=== PATIENT | female | born 1950 | race Caucasian/White ===

== ENCOUNTER 2018-07-08 07:41 | Emergency (ER) | payer OTHER, BC ==
[~2018-07-08] VITALS: Ht 157.5 cm; Wt 104.3 kg
[2018-07-08 07:46] VITALS: BP_SYST 166
[2018-07-08 08:43] LABS: BLOOD, URINE 3+ (NEGATIVE); CLARITY/URINE CLOUDY (CLEAR); COLOR,URINE YELLOW (YELLOW); GLUCOSE,URINE NEGATIVE (NEGATIVE); KETONES,URINE 3+ (NEGATIVE); LEUKOCYTE ESTERASE ,URINE NEGATIVE (NEGATIVE); NITRITE, URINE NEGATIVE (NEGATIVE); PH,URINE 5.5 (5.0-8.0); PROTEIN URINE 2+ (NEGATIVE); UROBILINOGEN,URINE 0.2 (0.2-1.0)
[2018-07-08 09:09] LABS: HEMATOCRIT 35.9 % (36-48); HEMOGLOBIN 12.3 g/dL (12.0-16.0); MEAN CORPUSCULAR HEMOGLOBIN 32 pg (27-31); MEAN CORPUSCULAR HGB CONC 34 % (32-36); MEAN CORPUSCULAR VOLUME 93 fL (79.0-98.0); PLATELET COUNT (AUTO) 87 K/uL (130-430); RED BLOOD CELL COUNT(AUTO) 3.87 MIL/uL (4.2-6.2); RED CELL DISTRIBUTION WIDTH 13.5 % (9.0-15.0); WHITE BLOOD COUNT (AUTO) 4.8 K/uL (4.8-10.8)
[2018-07-08 09:12] LABS: CALCIUM 9.7 mg/dL (8.4-11.0); CREATININE 0.97 mg/dL (0.55-1.30); POTASSIUM 4.5 mmol/L (3.5-5.1)
[2018-07-08 09:17] LABS: ALBUMIN 3.6 g/dL (3.4-4.8); TOTAL BILIRUBIN 0.9 mg/dL (0.0-1.0)
[2018-07-08] MEDS ORDERED: NACL 0.9% 1,000 ML IV ONE (09:30)
[2018-07-08 09:40] LABS: BASOPHILS % (MANUAL) 0 % (0-2); EOSINOPHILS % (MANUAL) 0 % (0-7); LYMPHOCYTES % (MANUAL) 7 % (20-46); MONOCYTES % (MANUAL) 3 % (0-11)
[2018-07-08 09:49] LABS: BACTERIA,URINE MODERATE /HPF (None Seen); MUCUS,URINE None Seen /LPF (None Seen); RBC,URINE >100 /HPF (0-3); WBC,URINE 0-3 /HPF (0-3)
[2018-07-08 09:50] LABS: BILIRUBIN,URINE 1+ (NEGATIVE)
[2018-07-08] MEDS ORDERED: cefTRIAXone 1 GM IVPB PREMIX 50 ML IV ONE (10:45)
[2018-07-08] MEDS ORDERED: DIPHENHYDRAMINE INJ 50 MG/ML VIAL IVP ONE (11:00)
[2018-07-08] MEDS ORDERED: DIPHENHYDRAMINE INJ 50 MG/ML VIAL ONE (11:05)
[2018-07-08 11:25] VITALS: BP_SYST 143
== END 2018-07-08 11:25 | disposition home or self-care (01) ==
LOC: SED 07:41
DX: N12 Tubulo-interstitial nephritis, not specified as acute or chronic (principal); Z90.89 Acquired absence of other organs; Z90.710 Acquired absence of both cervix and uterus
CPT/HCPCS: 36415; 80053; 81000; 83690; 85007; 85027; 87086; 96361; 96365; 96375; 99284; J0696; J1200; J7030

== ENCOUNTER 2020-08-10 18:38 | Emergency (ER) | payer OTHER, BC ==
[~2020-08-10] VITALS: Ht 152.4 cm; Wt 102.1 kg
[2020-08-10 18:45] VITALS: BP_SYST 165
[2020-08-10] MEDS ORDERED: LIDOCAINE 1%, 20 ML MDV 20 ML ONE (20:52)
[2020-08-10 21:57] VITALS: BP_SYST 165
== END 2020-08-10 21:57 | disposition home or self-care (01) ==
LOC: SED 18:38
DX: S81.811A Laceration without foreign body, right lower leg, initial encounter (principal); E11.9 Type 2 diabetes mellitus without complications; Z88.0 Allergy status to penicillin; Z88.6 Allergy status to analgesic agent; W22.8XXA Striking against or struck by other objects, initial encounter; Y93.89 Activity, other specified; Y92.89 Other specified places as the place of occurrence of the external cause; Y99.8 Other external cause status
CPT/HCPCS: 12002; 73590; 99283; J2001

== ENCOUNTER 2023-08-01 08:05 | Emergency (ER) | payer OTHER, BC ==
[~2023-08-01] VITALS: Ht 152.4 cm; Wt 86.2 kg
[2023-08-01 08:17] VITALS: BP_SYST 133; PULSE 105; RESP 22; TEMP 98.3; O2SAT 98
[2023-08-01 08:45] LABS: BASOPHILS % (AUTO) 0.2 % (0.0-2.0); EOSINOPHILS % (AUTO) 0.2 % (0.0-4.0); HEMATOCRIT 31.3 % (36-48); HEMOGLOBIN 9.8 g/dL (12.0-16.0); LYMPHOCYTES # (AUTO) 0.3 K/uL (1.0-5.5); LYMPHOCYTES % (AUTO) 6.1 % (20.5-51.5); MEAN CORPUSCULAR HEMOGLOBIN 29 pg (27-31); MEAN CORPUSCULAR HGB CONC 31 % (32-36); MEAN CORPUSCULAR VOLUME 93 fL (79.0-98.0); MONOCYTES # (AUTO) 0.6 K/uL (0.0-1.0); MONOCYTES % (AUTO) 11.6 % (1.7-9.3); NEUTROPHILS # (AUTO) 4.2 K/uL (1.8-7.7); NEUTROPHILS % (AUTO) 81.9 % (40.0-70.0); PLATELET COUNT (AUTO) 140 K/uL (130-430); RED BLOOD CELL COUNT(AUTO) 3.38 MIL/uL (4.2-6.2); RED CELL DISTRIBUTION WIDTH 16.5 % (9.0-15.0); WHITE BLOOD COUNT (AUTO) 5.1 K/uL (4.8-10.8)
[2023-08-01 08:52] LABS: ALANINE AMINOTRANSFERASE 18 U/L (12-78); ALBUMIN 3.3 g/dL (3.4-4.8); ANION GAP 8 (5-15); ASPARTATE AMINOTRANSFERASE 29 U/L (10-37); CALCIUM 9.3 mg/dL (8.4-11.0); CARBON DIOXIDE 26 mmol/L (23-29); CHLORIDE 100 mmol/L (98-107); CREATININE 0.68 mg/dL (0.55-1.30); GLUCOSE 163 mg/dL (74-106); POTASSIUM 4.4 mmol/L (3.5-5.1); SODIUM SERUM 134 mmol/L (136-145); TOTAL BILIRUBIN 1.1 mg/dL (0.0-1.0); TOTAL PROTEIN, SERUM 7.6 g/dL (6.4-8.3); UREA NITROGEN, BLOOD 13 mg/dL (8-21)
[2023-08-01 08:57] LABS: ACETONE, SERUM NEGATIVE (NEGATIVE)
[2023-08-01] MEDS ORDERED: CORTEARS EACH EAR (09:10)
[2023-08-01] MEDS ORDERED: CEPH250C PO (09:10)
[2023-08-01] MEDS ORDERED: IBUP-1969 PO (09:10)
[2023-08-01 09:24] VITALS: BP_SYST 133; PULSE 105; RESP 22; TEMP 98.3; O2SAT 98
[2023-08-02] MEDS ORDERED: MAGN400T7 PO (21:21)
[2023-08-02] MEDS ORDERED: MULT-1357 PO (21:21)
[2023-08-02] MEDS ORDERED: CAR30 PO (21:21)
[2023-08-02] MEDS ORDERED: CHOL200019 PO (21:21)
[2023-08-02] MEDS ORDERED: CELE200C PO (21:21)
[2023-08-02] MEDS ORDERED: OXYIR5 PO (21:21)
[2023-08-02] MEDS ORDERED: PRO40 PO (21:21)
[2023-08-02] MEDS ORDERED: ACET325T53 PO (21:21)
[2023-08-02] MEDS ORDERED: OMEP20CA15 PO (21:21)
[2023-08-02] MEDS ORDERED: ASA81 PO (21:21)
[2023-08-02] MEDS ORDERED: POTA-197 PO (21:21)
[2023-08-02] MEDS ORDERED: BUME1TAB9 PO (21:21)
[2023-08-02] MEDS ORDERED: METF-380 PO (21:21)
[2023-08-02] MEDS ORDERED: SITA100T11 PO (21:21)
== END 2023-08-01 09:24 | disposition home or self-care (01) ==
LOC: SED 08:05
DX: H60.92 Unspecified otitis externa, left ear (principal); E11.9 Type 2 diabetes mellitus without complications; Z88.0 Allergy status to penicillin; Z88.1 Allergy status to other antibiotic agents; Z79.899 Other long term (current) drug therapy
CPT/HCPCS: 36415; 80053; 82009; 85025; 99283